=== PATIENT | female | born 1985 | race Caucasian/White ===

== ENCOUNTER → 2017-11-23 13:38 | Outpatient (CLI) | payer OTHER, SELFPAY ==
[2017-11-23 20:39] LABS: Group B Strep DNA By PCR Negative (Negative); Internal Control PASS; Specimen Processing Control PASS
[2017-11-23 20:40] LABS: Probe Check PASS
== END ==
PROVIDERS: Visit Provider Obstetrics & Gynecology
DX: Z36.85 Encounter for antenatal screening for Streptococcus B (principal)
CPT/HCPCS: 87081; 87653

== ENCOUNTER 2017-12-24 01:30 | Inpatient (IN) | payer OTHER, SELFPAY ==
[2017-12-23 23:31] VITALS: BMI 25.6
[2017-12-24 00:02] LABS: ROM Internal Control Test YES-OK TO RESULT pt. (Internal QC); ROM Patient Test Negative (Negative)
[2017-12-24] MEDS: Lactated Ringers 1,000 ML 50 ML IV ×4 (01:45→08:55)
[2017-12-24 02:11] LABS: Hematocrit 36.3 % (37-47); Hemoglobin 12.2 g/dl (12.0-15.0); Mean Corp Hgb Conc 33.6 g/gl (32-36); Mean Corpuscular Hgb 29.8 pg (27.0-32.0); Mean Corpuscular Volume 88.8 fL (81-99); Mean Platelet Vol. 9.2 fl (6.2-12.0); Platelet Count 317 K/mm3 (150-450); RBC Distribution Width CV 14.2 % (11.6-14.6); RBC Distribution Width SD 45.1 fl (35.1-43.9); Red Blood Count 4.09 M/mm3 (4.2-5.4); White Blood Count 16.9 K/mm3 (4.4-11.0)
[2017-12-24 02:12] LABS: Scan Indicated on CBC? Y/N NO
[2017-12-24] MEDS: Ondansetron 4 MG/2 ML Vial IV (02:47)
--- NOTE | 2017-12-24 07:47 | PCM.PN.BLA ---
Progress Note LABOR PROGRESS NOTE comfortable w/ epidural AVSS EFM 110-120 with avg variability. Accels Category I tracing. UCs q 3-4 mins for most part. CX: /-1 VTX Pelvis adequate IUPC placed. A/P; 40 5/7 SROM labor. Pitocin augment prn to adequate UCs. Continue labor Anticipate
[2017-12-24] MEDS: Oxytocin 30 units/NS 500 ml 30 UNITS/500 ML IV.SOLN IV (08:02)
[2017-12-24] MEDS: Oxytocin 30 units/NS 500 ml 30 UNITS/500 ML IV.SOLN 334 UNITS IV (10:23)
--- NOTE | 2017-12-24 10:27 | PCM.OB.VAG ---
Vaginal Delivery Maternal Presentation: Active Labor 40 4/7 wk ?SROM. UCs Amniotic Membrane Rupture Type: Spontaneous at home Amniotic Fluid Description: Clear Final NHUNG: 12/20/17 Gestational age: 40 Weeks and 4 Days Date of Procedure: 12/24/17 Pre-Operative Diagnosis: 40 4/7 wk labor. Post-Operative Diagnosis: same Surgery/ Procedure Performed: Spontaneous Vaginal Delivery Anesthesiologist: Cristal Beavers Type of Anesthesia: Epidural Description of Procedure: of a madrigal viable female over intact perineum. Head delivered MALINA. OP and nares bulb suctioned after delivery of shoulders. Baby to maternal abdomen with spont, vigorous cry. Delayed cord clamped and cut on maternal abdomen. PP exam: 2nd deg vaginal laceration noted near introitus. repaired under epidural to hemostatic, intact with 3-0 vicryl. No other lacerations. Placenta delivered by spont expulsion, expression and manual extraction. Uterus manually explored after delivery of placenta. 3V cord, normal appearing EBL 300 Pt and infant tolerated delivery well. To recovery [employer] counts correct x two. Presentation: Vertex, MALINA Placental Delivery Description: Spontaneous, Expressed Placenta Disposition: [facility] Cord Vessel Description: 3 Vessels Cord Entanglement: None Drain: Silva to straight drain Estimated Blood Loss: 300 Infant A gender: Female (1 minute): 8 (5 minute): 9 Episiotomy Description: None Laceration: Vaginal Extension/lac, 2nd degree Medications given after delivery: IV Pitocin Complications: None
--- NOTE | 2017-12-24 10:31 | PCM.DCVAG ---
Discharge Diet: No Restrictions May resume sexual activity in: 4-6 weeks Additional Activity Instructions:: Nothing in the vagina for 4-6 weeks. You may return to work/school in 6 weeks. Additional Instructions: If you experience any of the following, contact your healthcare provider. Bleeding that soaks a pad every hour for 2 hours Fever 100.4 or higher Unrelieved abdominal pain Problems urinating (including inability to urinate or burning while urinating). Visual changes Severe headache Flu-like symptoms Pain or redness in one of both of your breasts Pain, warmth, tenderness or swelling in your legs, especially the calf area Frequent nausea and vomiting Symptoms of depression or anxiety If you experience any of the following, call 911 or go to the nearest Emergency Room. Chest pain Problems breathing Seizure activity Partial or complete paralysis of a body part, slurred speech, weakness or drooping of the face, or a sudden inability to walk or hold your balance Allergies/Adverse Reactions: Allergies No Known Allergies Allergy (Verified 12/23/17 23:29) Medications to take at Discharge Vits [Prenatabs FA] 1 tablet PO DAILY 12/23/17 Please Follow Up With: Sharda Nelson MD - [phone] When: Call to make an appointment with your doctor in 6 weeks. Primary Care Physician: Ranjeet Malave [Primary Care Provider] - Proposed Discharge Date: 12/26/17
--- NOTE | 2017-12-24 10:32 | DCINST_ITS ---
Discharge Diet: No Restrictions May resume sexual activity in: 4-6 weeks Additional Activity Instructions:: Nothing in the vagina for 4-6 weeks. You may return to work/school in 6 weeks. Additional Instructions: If you experience any of the following, contact your healthcare provider. * Bleeding that soaks a pad every hour for 2 hours * Fever 100.4 or higher * Unrelieved abdominal pain * Problems urinating (including inability to urinate or burning while urinating) . * Visual changes * Severe headache * Flu-like symptoms * Pain or redness in one of both of your breasts * Pain, warmth, tenderness or swelling in your legs, especially the calf area * Frequent nausea and vomiting * Symptoms of depression or anxiety If you experience any of the following, call 911 or go to the nearest Emergency Room. * Chest pain * Problems breathing * Seizure activity * Partial or complete paralysis of a body part, slurred speech, weakness or drooping of the face, or a sudden inability to walk or hold your balance Allergies/Adverse Reactions: Allergies No Known Allergies Allergy (Verified 12/23/17 23:29) Medications to take at Discharge Vits [Prenatabs FA] 1 tablet PO DAILY 12/23/17 Please Follow Up With: Sharda Nelson MD - [phone] When: Call to make an appointment with your doctor in 6 weeks. Primary Care Physician: Ranjeet Malave [Primary Care Provider] - Proposed Discharge Date: 12/26/17
[2017-12-24] MEDS: Oxytocin 30 units/NS 500 ml 30 UNITS/500 ML IV.SOLN 167 UNITS IV (10:50)
[2017-12-24] MEDS: 0.9% Saline Lock 10 ML Syringe IV (11:56)
[2017-12-24 15:25] VITALS: BP 104/70; PULSE 84; RESP 16; TEMP 37.2; O2SAT 96
[2017-12-24 19:45] VITALS: BP 101/65; PULSE 80; RESP 16; TEMP 36.8; O2SAT 96
[2017-12-25] VITALS (7 sets, daily range): BP systolic 90–110; BP diastolic 48–78; PULSE 68–78; RESP 16–18; TEMP 36.3–36.8; O2SAT 95–98
--- NOTE | 2017-12-25 07:44 | PCM.PN.OB ---
Subjective: PPD#1 Doing well. Baby nursing and she would like assistance with this today. Slept some between baby's last feed and approx 7:15 am. Pain minimal. No concerns voiced. - Physical Exam General: Alert, Oriented x3, Cooperative, No apparent distress HEENT: Atraumatic Neck: Supple Abdomen: Soft - Fundus NT , inferior to umbilcus, Firm Neurological: Cranial nerves II-XII grossly intact Psych/Mental Status: Normal Affect Vital Signs Temp Pulse Resp BP Pulse Ox 98.2 F 75 16 106/62 96 12/25/17 07:00 12/25/17 07:00 12/25/17 07:00 12/25/17 07:00 12/25/17 07:00 Oxygen Delivery Method Room Air Weight: 78.8 kg Body Mass Index (BMI) 25.6 Intake and Output for Last 24 Hours 12/23/17 12/24/17 12/25/17 23:59 23:59 23:59 Intake Total 3898 / 3898 Output Total 3800 / 3800 Balance 98 / 98 Assessment/Plan PPD#1 Stable pp. Assist with nursing today. Continue care.
[2017-12-25] MEDS: Prenatal Vits Tablet 1 TABLET PO (13:31)
[2017-12-25] MEDS: Ibuprofen 600 MG Tablet PO (20:24)
[2017-12-26 01:31] VITALS: BP 109/60; PULSE 62; RESP 16; TEMP 36.6; O2SAT 98
--- NOTE | 2017-12-26 08:06 | PCM.PN.OB ---
Subjective: PPD#2 Doing well. Nursing a little better Baby sleepy this am. Pain control adequate. - Physical Exam General: Alert, Oriented x3, Cooperative, No apparent distress HEENT: Atraumatic Neck: Supple Abdomen: Soft - fundus firm NT inferior to umbilicus Neurological: Cranial nerves II-XII grossly intact Psych/Mental Status: Normal Affect Vital Signs Temp Pulse Resp BP Pulse Ox 97.8 F 62 16 109/60 98 12/26/17 01:31 12/26/17 01:31 12/26/17 01:31 12/26/17 01:31 12/26/17 01:31 Oxygen Delivery Method Room Air Weight: 78.8 kg Body Mass Index (BMI) 25.6 Intake and Output for Last 24 Hours 12/24/17 12/25/17 12/26/17 23:59 23:59 23:59 Intake Total 3898 / 3898 Output Total 3800 / 3800 Balance 98 / 98 Assessment/Plan PPD#2 Stable pp. D/C home today. RTO in 6 wk for pp check.
[2017-12-26 09:56] VITALS: BP 138/76; PULSE 78; RESP 16; TEMP 36.4; O2SAT 96
== END 2017-12-26 12:20 | disposition home or self-care (01) | DRG 775 ==
LOC: WPOUT 01:36
PROVIDERS: Admitting Provider Obstetrics & Gynecology; Family Provider Family Medicine; PCP Family Medicine; Visit Provider Obstetrics & Gynecology
DX: O42.02 Full-term premature rupture of membranes, onset of labor within 24 hours of rupture (principal); D64.9 Anemia, unspecified; O99.02 Anemia complicating childbirth; O70.1 Second degree perineal laceration during delivery; Z37.0 Single live birth; Z3A.40 40 weeks gestation of pregnancy
CPT/HCPCS: 59025; 59050; 84112; 85027; 86850; 86900; 99218; J7120; A4216; G0378; J2405

== ENCOUNTER 2017-12-31 12:55 | Outpatient (CLI) | payer OTHER, SELFPAY | END 2017-12-31 14:00 | disposition home or self-care (01) | LOC: WPOUT 13:04 → WP 13:06 | PROVIDERS: Family Provider Family Medicine; PCP Family Medicine; Visit Provider Obstetrics & Gynecology | DX: Z39.1 Encounter for care and examination of lactating mother (principal) | CPT/HCPCS: 96152 ==

== ENCOUNTER → 2019-08-19 14:10 | Outpatient (CLI) | payer OTHER, SELFPAY ==
[2019-08-19 20:27] LABS: Chlamydia Trachomatis by PCR Negative (Negative); Neisserai gonorrhoeae by PCR Negative (Negative); Probe Check PASS; Sample Adequacy Control PASS; Specimen Processing Control PASS
== END ==
PROVIDERS: Visit Provider Advanced Practice Midwife
DX: Z12.4 Encounter for screening for malignant neoplasm of cervix (principal); Z11.3 Encounter for screening for infections with a predominantly sexual mode of transmission; Z32.01 Encounter for pregnancy test, result positive
CPT/HCPCS: 87491; 87591

== ENCOUNTER → 2019-08-25 16:30 | Outpatient (CLI) | payer OTHER, SELFPAY ==
[2019-08-25 17:20] LABS: Color, Urine Yellow (Yellow); Glucose, Dipstick Normal (Normal); Hematocrit 39.1 % (37-47); Hemoglobin 12.6 g/dL (12.0-15.0); Ketone-Dipstick Negative (Negative); Leukocyte Esterase-Dipstick 25 /ul (Negative); Mean Corp Hgb Conc 32.2 g/dL (32-36); Mean Corpuscular Hgb 28.3 pg (27.0-32.0); Mean Corpuscular Volume 87.9 fL (81-99); Mean Platelet Vol. 8.5 fl (6.2-12.0); Nitrite-Dipstick Negative (Negative); Occult Blood-Urine Negative /ul (Negative); POSITIVE MORPHOLOGY YES; Platelet Count 354 K/mm3 (150-450); Protein-Dipstick Negative (Negative); RBC Distribution Width CV 12.8 % (11.6-14.6); RBC Distribution Width SD 41.3 fl (35.1-43.9); Red Blood Count 4.45 M/mm3 (4.2-5.4); Urine Bilirubin Dipstick Negative (Negative); Urine Clarity Sl. Cloudy (Clear); Urine Urobilinogen Normal (Normal); White Blood Count 10.8 K/mm3 (4.4-11.0)
[2019-08-25 17:52] LABS: Differential Indicated MANUAL DIFF
[2019-08-25 17:56] LABS: Lymphocyte 24 % (19-41); Monocyte 5 % (0-10); Neutrophil-Band 1 % (0-5); Neutrophil-Segmented 70 % (47-70); Total Cells Counted 100 (MANUAL DIFF)
[2019-08-25 17:57] LABS: Platelet Estimate ADEQUATE (ADEQ); Red Cell Morphology NORM C+C NORMAL (NORM C&C)
[2019-08-25 18:00] LABS: Absolute Lymphocyte Count 2.59 X10^3/uL (0.83-4.51); Absolute Neutrophil Count 7.7 X10^3/uL (2.0-7.7)
[2019-08-26 09:23] LABS: HIV - WCH Non-Reactive (Nonreactive); Hepatitis B Surface Antigen Non-Reactive (Nonreactive); Hepatitis C Antibody Non-Reactive (Nonreactive); Rubella IgG 157.8 IU/mL
[2019-08-26 11:08] LABS: Pathologist Review Reviewed
[2019-08-28 03:07] LABS: Prenatal RPR NONREACTIVE (NONREACTIVE)
== END ==
PROVIDERS: Visit Provider Obstetrics & Gynecology
DX: Z34.81 Encounter for supervision of other normal pregnancy, first trimester (principal)
CPT/HCPCS: 36415; 81002; 84443; 85025; 86703; 86762; 86803; 87340

== ENCOUNTER → 2020-01-16 08:43 | Outpatient (CLI) | payer OTHER, SELFPAY ==
[2020-01-16 10:40] LABS: Hematocrit 34.4 % (37-47); Hemoglobin 11.1 g/dL (12.0-15.0); Mean Corp Hgb Conc 32.3 g/dL (32-36); Mean Corpuscular Hgb 29.6 pg (27.0-32.0); Mean Corpuscular Volume 91.7 fL (81-99); Mean Platelet Vol. 9.1 fl (6.2-12.0); Platelet Count 318 K/mm3 (150-450); RBC Distribution Width CV 13.4 % (11.6-14.6); RBC Distribution Width SD 44.9 fl (35.1-43.9); Red Blood Count 3.75 M/mm3 (4.2-5.4); White Blood Count 10.8 K/mm3 (4.4-11.0)
[2020-01-16 10:47] LABS: Glucose Challenge Gest 1H 50g 123 mg/dL (70-140)
== END ==
PROVIDERS: Visit Provider Obstetrics & Gynecology
DX: Z34.83 Encounter for supervision of other normal pregnancy, third trimester (principal)
CPT/HCPCS: 36415; 82950; 85027

== ENCOUNTER → 2020-03-17 16:07 | Outpatient (CLI) | payer OTHER, SELFPAY | PROVIDERS: Visit Provider Obstetrics & Gynecology | DX: Z36.85 Encounter for antenatal screening for Streptococcus B (principal) | CPT/HCPCS: 87081 ==

== ENCOUNTER 2020-04-10 06:18 | Inpatient (IN) | payer OTHER, SELFPAY ==
[2020-04-10] VITALS (39 sets, daily range): BP systolic 106–140; BP diastolic 55–81; PULSE 32–115; RESP 18; TEMP 36–37.1; O2SAT 82–100; BMI 27.0
[2020-04-10 06:47] LABS: Absolute Lymphocyte Count 1.56 X10^3/uL (0.83-4.51); Absolute Neutrophil Count 10.6 X10^3/uL (2.0-7.7); Basophil# 0.04 X10^3/uL; Basophil% 0.3 % (0-1); Eosinophil# 0.04 X10^3/uL; Eosinophils% 0.3 % (0-5); Hematocrit 35.7 % (37-47); Hemoglobin 11.3 g/dL (12.0-15.0); Lymphocyte # 1.56 X10^3/ul (4.0); Lymphocyte % 11.8 % (19-41); Mean Corp Hgb Conc 31.7 g/dL (32-36); Mean Corpuscular Hgb 28.5 pg (27.0-32.0); Mean Corpuscular Volume 90.2 fL (81-99); Mean Platelet Vol. 9.8 fl (6.2-12.0); Monocyte# 0.91 X10^3/uL; Monocyte% 6.9 % (0-10); NRBC Flagged by Analyzer 0 % (0-5); Neutrophil # 10.62 X10^3/uL (2.7-7.7); Neutrophil % 79.9 % (47-70); Platelet Count 288 K/mm3 (150-450); RBC Distribution Width CV 14.2 % (11.6-14.6); RBC Distribution Width SD 46.3 fl (35.1-43.9); Red Blood Count 3.96 M/mm3 (4.2-5.4); White Blood Count 13.3 K/mm3 (4.4-11.0)
[2020-04-10] MEDS: Lactated Ringers 500 ML 999 ML IV (06:55)
[2020-04-10] MEDS: fentaNYL-bupivacaine (epidural) 100 ML BAG EPIDURAL (07:35)
[2020-04-10] MEDS: Lactated Ringers 1,000 ML 200 ML IV ×2 (07:57→12:13)
[2020-04-10 10:29] LABS: Probe Check PASS; Specimen Processing Control PASS
--- NOTE | 2020-04-10 10:41 | PCM.HP.BLA ---
History and Physical ACOG ANTEPARTUM RECORD - HISTORY AND PHYSICAL (04/10/2020) Name: DENISA NICKERSON History of This : This is a 34-year-old G2, P1 who presents to labor and delivery in active labor. care has otherwise been uneventful. OB Physician: STEPHANIE 's Physician: ABHINAV Nicholas..................................................................... : 1985 Age: 34 Address: [address] [place] [address] Phone: H) [phone] (O) [phone] Insurance Carrier: [employer] [id number] Emergency Contact: RAMOS NICKERSON [phone] ...................................................................... Final NHUNG: 04/06/20 By Ultrasound: PARITY: (G-Total Pregnancies P-Fullterm,Premature,Induced AB,Spont AB, Ectopics, Multiple,Living) NHUNG CONFIRMATION: By LMP: 06/30/19 Final NHUNG: 04/06/20 OB PROBLEM LIST: Declines AFP and CF tests. Margina previa - RESOLVED Pt has a first cousin with Autism s/p Tdap @ 36w ALLERGIES: NKA MEDICATIONS: ondansetron 8 mg disintegrating tablet 1 po q 8 hr prn + DHA 28 mg iron- 975 mcg-200 mg combo pack daily Prometrium 200 mg capsule 2 po nightly until 12 wk EGA SOCIAL HISTORY: Smoking - Never Alcohol Use - occasionally not while Diet - moderate, balanced diet, caffeine < 2 drinks per day and Tea 1-2 x daily. Water intake 750 cc jug fills 2-3 x day. Lifestyle - low stress lifestyle Exercise - active, Likes to walk and kayak. 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 Illicit Drug Use - denies use of street drugs Sexual Activity - Residence - lives with Place of - [place], [place] Hours Worked - 28 Spouse-Sig Other Name - Ramos Nickerson Spouse-Sig Other Occupation - [employer] Spouse-Sig Other Phone No - [phone] Children Name(s) - Teresa (TRACE) PRIOR DELIVERY HISTORY DEL DATE GEST LAB WT LB WT OZ TYPE ANES LABOR TX 26 Feb 18 41 12 7 7 Vag Epidural No ANTEPARTUM FLOW CHART VISIT RTC FU F F NV U U DATE WK MD WKS HT PN HR M SS BP ED WT NV GL D EF ST __ ____ ___ __ __ ___ __ __ __ ___ __ __ __ ___ __ 12 Mar 40 SHM 1 38 V + + 112/88 sl 184 - - 4 60 -2 03 Mar SHM 1 39 V + + 106/76 sl 182 tr - 3 50 -3 February CH 1 38 V + + 110/80 sl 179 tr - 20 February 37 SHM 1 37 V + + 110/72 0 179 tr - 2+ 50 -3 February SHM 1 + 118/60 o 174 Jan SHM 2 31 ? + + 120/80 0 174 tr - 16 Jan SHM 2 ? 144 + - 110/70 o 163 02 Feb 25 SHM 2 + + 112/60 o 0 20 Jan 23 SHM 2 28 + + 120/70 0 163 tr - 09 Jan 21 JMW 2 26 + + 104/70 0 163 tr ne Dec 22 JMW 4 24 + + 102/72 0 160 - - Nov 17 SHM 2 20 + + 96/68 0 153 tr - Oct 13 ELB 4 - - + ? 100/72 0 154 tr - Sep 09 ELB 4 - - + O 103/71 0 151 - - Aug 04 ELB on 90/66 0 153 - - Aug 04 ELB on 90/ 0 153 - - ANTEPARTUM NOTE(S): Apr 09 2020: feeling well. Cervix check. Mar 31 2020: see note Mar 24 2020: cxs ely nd off. discomfort around pelvic area. Mar 17 2020: GBS today, LARC declined March 11 2020: Feb 24 2020: see note Feb 11 2020: Jan 29 2020: Inquires about US Jan 16 2020: doing well Jan 04 2020: u/s done today. doing well Dec 19 2020: feeling well. glucola given. Nov 20 2020: see note Oct 23 2019: doing well, declines MSAFP Sep 24 2019: Aug 25 2019: Aug 25 2019: COMPREHENSIVE ANTEPARTUM NOTE(S): Apr 09 2020: Induction scheduled for 04/13 @ 7 am. Consents are signed and faxed to . She is instructed if ANY decrease in FM she is to go directly to [facility] and will need to be monitored until delivery. LMT Apr 09 2020: Membranes stripped Mar 31 2020: Denisa is here for a PNV. Good FM. Sl edema in feet when hot. No complaints or concerns expressed. Opted for cervix check. MK Mar 24 2020: +FM. FHR 155. Would like checked next week, but okay with no check this week. Discussed new option to get outpatient covid-19 testing prior to delivery to rule out and if neg woudl not have to wear mask. Let her know next week she may ask for an order to get this done through the drive thru testing or if coming in in labor can get once here, but we prefer outpatient after 39 weeks. Went a week overdue with her first, but SROM at home then labor started while at the hospital. Advised on when to call and if unsure to call triage anyways. Lives 15 minutes away and discussed being GBS negative she may labor at home longer until she is active if she wishes. States understanding and signs of labor. To return in 1 week for routine PNV with SHM and may want membrane sweeping at that time. - CH Mar 23 2020: H taken to OB. tkg Mar 17 2020: US CEPHALIC, JES grossly normal. Reports discharge. No pool, Wet prep - neg clue/trich/yeast, pH <4.5 => Leukorrhea. Mar 17 2020: Reviewed FM, SROM, and labor. LMT Mar 11 2020: TELEPHONE VISIT DUE TO PANDEMIC. Has increased contractions, but they are irregular and off and on the last few days. Denies mucus plug or bleeding. Has yellow colored discharge. Denies vagina itching, burning, odor however. HR 154 bpm. Forgot to take weight at work this week. FM precautions reviewed. will take 2 weeks paternity leave. Last day of work in house this week. 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 Follow up in office next week for GBS screening, discussion of induction indications. Call 9 minutes. Feb 25 2020: Notes more irregular ctx's but nothing progressive or timeable. Reviewed signs and sx of PTL. FM discussed, GBS at next visit. Low lying placenta and no bleeding reported. LMT Feb 25 2020: S<D, EFW 2661g (5lb 14oz in 79th%), JES 12.6cm. Prior marginal previa RESOLVED, placenta 2.4cm from os. Ok for . 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 I advised her to quarantine at home starting 37wga to avoid COVID19 related illness for her or at the time of delivery. Jan 29 2020: TELEHEALTH visit due to pandemia: FHR 143 bpm. Mild constipation, discomforts of pregancy, but notes theses are manageable. Continues working, canceled classess and is doing one on one education only. Encouraged social distancing and to wear mask for all workplace interactions given COVID-19. Good movement. Occasional Eugene Huerta. Jan 16 2020: US EFW 71st%, placenta 17mm from cervix. Plan phone follow up next visit given COVID-19 precautions. Pt reports irregular heart beat when checking at home, denies tachycardia. Occasional Eugene Huerta. She continues working. No concerns for high risk exposures. Discussed PPBC. Used condoms in past and hx subfertility - too 1.5 years to conceived this time and longer for G1. Nov 20 2019: Denisa is here for a appt. She is feeling well with no edema. Nausea has subsided. Reported that on 11/18/2019 she had vision problems in her right eye. Said that it was like looking through water for 45 mins. Said there was no headache with it and hasn't had it since. Urine tr -. Baby moving, waiting till for gender. MK Nov 20 2019: Reviewed PMH. US EFW 68th%, SEX UNKNOWN. Posterior previa present. Repeat US at 28wga. Eugene Huerta precautions. Si/sx stroke reviewed. Pt to be seen if sx recur. Sep 24 2019: Reviewed NOB labs. Doing well Minimal nausea, constipation is better. She is here with her daughter who is anxious re doctor. FHT noted. RTO in 4 wk for PNV. EB Aug 26 2019: Rubella immune Hgb 12.6 g/dl. EB Aug 26 2019: Addition to yesterday's NOB visit note: Denisa and her have had flu shots this fall. DRE. Aug 25 2019: Denisa is here for NOB nurse visit w NHUNG April 06, 2020 planning a vag del at [facility], uncertain if epidural, using Dr Us for post disch ped care and to breastfeed. Denisa is a G 2 P 1 with 20 month old daughter at home. 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 Her , Ramos works for [employer]. The was unplanned (they'd quit trying for awhile) and they are happy. Denisa has NKA to drugs, food. latex or the environment. She is a lifetime non smoker, drinks alcohol occ but not in pg and denies street drug use past or present. Her diet is well balanced with 1 or 2 cups of tea daily and a 750 cc water jug she refills 2 or 3 x. She is active w her home and job and likes to walk and kayak. Genetics Screening form completed noting a cousin w autism. Besides a vitamin she takes Prometrium 400 mg daily for the first 12 w. She declines AFP and CF tests. Warning signs in pg reviewed as well as otc meds ok to take, lifting restrictions of 25#, the importance of protein in her diet, wearing seatbelt low on her abdomen and how to reach the office after hours. She voices understanding. She has a copy of What to Expect. They have a cat but she does not change the litter. Routine labs ordered and US done today. Denisa has had chickenpox and two UTIs prior to her last pg. Enc to call w any concerns. Visit took approx 40 min. Devaughn CAMP. NEW Aug 25 2019: A positive. TSH wnl. Hgb 12.6 g/dl. EB Aug 20 2019: GC and chlamydia cultures NEG. EB Aug 19 2019: Denisa is a 34 yr old Gr2, P1 here for Missed Menses. She is w/an 18 yr old daughter. Hx monthly periods. By LMP 06/30/19, she would be 7 wks 1 day, NHUNG 04/06/20. No nausea, some breast tenderness, abdominal bloating. Offered daily probiotic to help w/bloating. She had called to the office 08/14 with concern of cramping R side; today reports this @ daily pain R side. US fo follow. No menstrual like cramping, no spotting. Taking daily PNV, Prometrium 400 mg @ hs thru 12 wks. Hx prior. No medical problems. No abd surgeries. Non-smoker. She would like to have a pap today along w/GC/Chlamydia cultures. 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 informational materials provided and reviewed otc meds ok to take. NO NSAIDS> kbm Aug 19 2019: Denisa is a 34yo here for a missed menses appointment. She originally scheduled an appointment with Dr. Nelson on 08/25/2019, but called for an appointment today because of consistent pain on her lower R side x several days. She reports mild fatigue and breast tenderness, and minimal nausea. she reports her her LMP as 06/30/2019 which gives her an NHUNG of 04/05/2020, making her 7w1d gestation today. An ultrasound today confirms these dates; a R sided benign appearing ovarian cyst was noted. A pap with cultures and pelvic exam was done today. Reviewed literature, OTC medications for minor discomforts, warning signs, practice paterns and schedule of visits. Pt. desires care by Dr. Nelson for this . RTO on scheduled visit of 08/25 for NOB, bloodwork and PNV with EB - KVW REVIEW OF SYSTEMS: GENERAL - Denies fever, or chills SKIN - Denies rash, new skin lesions, or change in moles EYES - Denies blurred vision, or change in visual acuity EARS - Denies ear pain, or difficulty hearing NOSE - Denies nasal congestion, discharge, or bleeding MOUTH - Denies sore throat, or difficulty swallowing NECK - Denies pain or swelling RESPIRATORY - Denies shortness of breath, cough, wheezing CARDIOVASCULAR - Denies palpitations, chest pain, orthopnea, PND, peripheral edema, syncope or claudication GASTROINTESTINAL - Denies nausea, vomiting, diarrhea, constipation, Denies abdominal pain, melena and or bright red blood GENITOURINARY - Denies dysuria, frequency of urination, urgency, or hesitancy MUSCULOSKELETAL - Denies joint or muscle pain, or back pain NEUROLOGICAL - Denies localized numbness, weakness, or tingling PSYCHIATRIC - Denies depression, anxiety, substance abuse or suicide attempts ENDOCRINE - Denies heat or cold intolerance, weight loss or gain, increasing thirst HEMATO-IMMUNOLOGIC - Denies easy bruising, bleeding, oral ulcerations or recurrent infections GENETICS SCREENING: Age 35+ years: No Thalassemia: No Neural Tube Defect: No Down Syndrome: No MOLLY-SACHS: No Sickle Cell Disease: No Hemophilia: No Musc. Dystrophy: No Cystic Fibrosis: No-declines screening Ebenezer Chorea: No Mental Retardation: No Fragile X: No Other genetic: No Other defects: No SABs/still births: No Drugs since LMP: Yes Comments: Cousin with Autism INFECTION HISTORY: High risk AIDS: No High risk Hepatitis: No Exposed to TB: No Exposed to Herpes: No Rash/viral illness since LMP: No History of STD: No MENSTRUAL HISTORY: *Menses Amount/Duration: 7 daysMenses Regularity: RegularMenarche (Age Onset): 17* PAST SUMMARY: PARITY: 1. Total Pregnancies............ 2 2. Full Term Pregnancies........ 1 3. Premature.................... 0 4. Abortions - Induced.......... 0 5. Abortions - Spontaneous...... 0 6. Ectopics..................... 0 7. Multiple Births.............. 0 8. Living Children.............. 1 PAST #1: Date of :.................. 12/24/17 Gestation Weeks:................ 41 Length of labor(hours):......... 12 Sex:............................ F Weight-lbs:............... 7 Weight-oz:................ 7 Type of Delivery:............... Vag Type of Anesthesia:............. Epidural Place of Delivery:.............. [place] Treatment of Labor?:.... No Comment: PHYSICAL EXAMINATION General Appearence: 34 yo female in no acute distress Vital Signs: AF, VSS Heart: RRR without rubs or gallops Lungs: CTA x 2 Breasts: deferred Abdomen: gravid Pelvis: Cervix: 6/90%/intact Presentation: cephalic Station: -2 Fetus: Size: AGA Movement: present Heart: present Labs for : DENISA NICKERSON since 07/11/2019 ORDER DATEIN DESCRIPTION VALUE UNITS RANGE A+ COMMENT CORONAVIRUS 19, DM SCREEN 04/10/20 NOTE Original Ordering Provider: Chirag Encinas COVID-19,DM Negative Not Detect TYPE AND SCREEN 04/10/20 Reason for Type AND Screen/Red Cells: Labor [facility]~[address] [place], [address]~ BLOOD TYPE GEL A POSITIVE N ANTIBODY SCREEN NEGATIVE N CBC W/DIFF, AUTOMATED 04/10/20 NOTE Original Ordering Provider: Chirag Encinas WBC 13.3 K/mm3 4.4-11.0 H RBC 3.96 M/mm3 4.2-5.4 L HGB 11.3 g/dL 12.0-15.0 L HCT 35.7 % 37-47 L MCV 90.2 fL 81-99 MCH 28.5 pg 27.0-32.0 MCHC 31.7 g/dL 32-36 L RDW CV 14.2 % 11.6-14.6 RDW SD 46.3 fl 35.1-43.9 H PLT 288 K/mm3 150-450 MPV 9.8 fl 6.2-12.0 NEUT% 79.9 % 47-70 H LY% 11.8 % 19-41 L MONO% 6.9 % 0-10 EO% 0.3 % 0-5 BASO% 0.3 % 0-1 IM GRAN % 0.800 % 0.0-0.9 IG% - Immature Granulocytes (promyelocytes, myelocytes and metamyelocytes) > 1% indicates that a LEFT SHIFT is Present. ABSOLUTE NEUT 10.6 X10 3/uL 2.0-7.7 H ABSOLUTE LYMPH 1.56 X10 3/uL 0.83-4.51 NRBC, FLAGGED 0 % 0-5 CULTURE, GROUP B STREPTOCOCCUS 03/17/20 NOTE Original Ordering Provider: Wendi Montiel SALIMA Culture Group B Beta Streptococcus is not isolated. Reviewed by WENDI GLUCOSE CHALLENGE GEST 1H 50G 01/16/20 NOTE Original Ordering Provider: Wendi Treviño GLU GEST 50G 1H 123 mg/dL 70-140 Reviewed by WENDI CBC-COMPLETE BLOOD CNT NO DIFF 01/16/20 NOTE Original Ordering Provider: Wendi Treviño WBC 10.8 K/mm3 4.4-11.0 RBC 3.75 M/mm3 4.2-5.4 L HGB 11.1 g/dL 12.0-15.0 L HCT 34.4 % 37-47 L MCV 91.7 fL 81-99 MCH 29.6 pg 27.0-32.0 MCHC 32.3 g/dL 32-36 RDW CV 13.4 % 11.6-14.6 RDW SD 44.9 fl 35.1-43.9 H PLT 318 K/mm3 150-450 MPV 9.1 fl 6.2-12.0 Reviewed by WENDI RPR 08/25/19 NOTE Original Ordering Provider: Sharda Nelson RPR NONREACTIVE NONREACTIVE Reviewed by SHARDA CBC W/DIFF, AUTOMATED 08/25/19 NOTE Original Ordering Provider: Sharda Nelson WBC 10.8 K/mm3 4.4-11.0 RBC 4.45 M/mm3 4.2-5.4 HGB 12.6 g/dL 12.0-15.0 HCT 39.1 % 37-47 MCV 87.9 fL 81-99 MCH 28.3 pg 27.0-32.0 MCHC 32.2 g/dL 32-36 RDW CV 12.8 % 11.6-14.6 RDW SD 41.3 fl 35.1-43.9 PLT 354 K/mm3 150-450 MPV 8.5 fl 6.2-12.0 ABSOLUTE NEUT 7.7 X10 3/uL 2.0-7.7 ABSOLUTE LYMPH 2.59 X10 3/uL 0.83-4.51 CELLS COUNTED 100 MANUAL DIFF SEGS 70 % 47-70 BAND 1 % 0-5 LYMPH 24 % 19-41 MONOCYTE 5 % 0-10 PLT EST ADEQUATE ADEQ RED CELL MORPH NORM C+C NORMAL NORM C AND C PATH REV Reviewed AMENDED REPORT 08/26/19 1108 PATH REV previously reported as: February Reviewed by SHARDA HEPATITIS C ANTIBODY 08/25/19 NOTE Original Ordering Provider: Sharda Nelson HEPATITIS C AB Non-Reactive Nonreactive Non Reactive: < 0.8 Equivocal: >/= 0.8 to < 1.0 Reactive: >/= 1.0 The CDC recommends that a reactive/equivocal HCV antibody result be followed up by the HCV Nucleic Acid Amplification test ([id number]) Reviewed by SHARDA HEPATITIS B SURFACE ANTIGEN 08/25/19 NOTE Original Ordering Provider: Sharda Nelson HEPB SURFACE AG Non-Reactive Nonreactive Reviewed by SHARDA HIV - H 08/25/19 NOTE Original Ordering Provider: Sharda Nelson HIV - [facility] Non-Reactive Nonreactive Reviewed by SHARDA RUBELLA IGG 08/25/19 NOTE Original Ordering Provider: Sharda Nelson RUBELLA IGG 157.8 IU/mL Antibody results Interpretation of Immune Status < 5 IU/ml Presumed Non-immune 5 - < 10 IU/ml Equivocal > or = 10 IU/ml Presumed Immune Reviewed by SHARDA T AND S-NO CHARGE W/PNP 08/25/19 Reason for Type AND Screen/Red Cells: Surgery? N [facility]~[address] [place], [address]~ BLOOD TYPE GEL A POSITIVE N AB SCREEN GEL NEGATIVE N Reviewed by SHARDA THYROID STIM HORMONE (TSH) 08/25/19 NOTE Original Ordering Provider: Sharda Nelson TSH 0.90 uIU/mL 0.358-3.74 Reviewed by SHARDA Reviewed by SHARDA URINALYSIS, ROUTINE (DIPSTICK) 08/25/19 NOTE Original Ordering Provider: Sharda Nelson COLOR Yellow Yellow CLARITY Sl. Cloudy Clear GLUCOSE, UR Normal mg/dl Normal BILIRUBIN URINE Negative mg/dL Negative KETONE UR Negative mg/dl Negative SP.GR. DIPSTX 1.010 1.002-1.030 PH UR 7.0 5.0 - 8.0 PROT DIPSTX Negative mg/dl Negative UROBILI Normal mg/dl Normal NITRITE UR Negative Negative OCCULT BLOOD-UR Negative /ul Negative LEUK ESTERASE 25 /ul Negative H Reviewed by SHARDA BAYANEOUS LAB PROCEDURE 08/19/19 NOTE Original Ordering Provider: LUCY Jones [facility] [facility] [place] IGP,Aptima HPV, Age Gdln Interpretation: NEGATIVE FOR INTRAEPITHELIAL LESION AND MALIGNANCY. Specimen Adequacy: Satisfactory for evaluation. No endocervical component is identified. An endocervical component is not commonly seen in the patient. Comments: The pap smear is a screening test designated to aid in the detection of pre-malignant and malignant conditions of the uterine cervix. It is not a diagnostic procedure and should not be used as the sole means of detecting cervical cancer. Both false-positive and false-negative reports do occur. This liquid based ThinPrep(r) pap test was screened with the use of an image guided system. Performed by Monique Biswas Analog Ic Design Engineer(ASCP) This test detects fourteen high-risk HPV types (16/18/31/33/35/39/45/51/52/56/58/59/60/68) without differentiation. Age Gdln ACOG Testing 30-65 HPV Results: HPV Aptima: Negative TESTING PERFORMED AT [facility]. ORIGINAL REPORT ON FILE IN LAB CONTAINS ADDITIONAL TEST SITE INFORMATION. Reviewed by SHARDA DONALD [facility] BY PCR 08/19/19 NOTE Original Ordering Provider: LUCY Jones [facility] PCR Negative Negative NG BY PCR Negative Negative Reviewed by SHARDA Impression /Plan: 40+ week intrauterine in active labor. Preparations in progress for delivery. Procedure Criteria Procedure Type: Essential Procedure Essential: Yes Criteria Statement: On 01/13/2020 the [facility] ([facility]) Public Order signed by [facility] Director Kellen Cabrera M.D., regarding the Management of Non-Essential Surgeries and Procedures for the purpose of preserving Personal Protective Equipment (PPE) and critical hospital capacity and resources within [place] went into effect as of 01/14/2020 at 5:00PM. According to the [facility] Public Order: This action will remain in full force and effect until the State of Emergency declared by the Governor no longer exists or the Director of the [facility] rescinds or modifies this Order. This [facility] order stated all non-essential or elective surgeries and procedures that utilize PPE should be delayed unless there is undue risk to the current or future health of a patient. After reviewing the aforementioned [facility] Public Order and the patient's clinical case, I have determined that the scheduled procedure meets the criteria to go forward. Risk to Patient if Procedure Delayed: Risk of rapidly worsening to severe symptoms if delayed
[2020-04-10] MEDS: Oxytocin 30 units/NS 500 ml 30 UNITS/500 ML IV.SOLN 334 UNITS IV (13:12)
[2020-04-10] MEDS: Methylergonovine 0.2 MG/ML Ampul IM (13:14)
--- NOTE | 2020-04-10 13:24 | OP.PCM_ITS ---
Vaginal Delivery Maternal Presentation: Active Labor Amniotic Membrane Rupture Type: Artificial Amniotic Fluid Description: Clear Final NHUNG: 04/06/20 Final NHUNG Source: US <20 weeks Gestational age: 40 Weeks and 4 Days Date of Procedure: 04/10/20 Pre-Operative Diagnosis: IUP Post-Operative Diagnosis: IUP Surgery/ Procedure Performed: Spontaneous Vaginal Delivery Type of Anesthesia: Epidural Description of Procedure: Spontaneous vaginal delivery of a viable female infant with Apgars of 9/9 from an occiput anterior presentation with clear amniotic fluid and normal three- vessel placenta. No episiotomy. Second-degree midline laceration repaired with 3-0 repeat suture under epidural. Sponges okay. Delivery physician: Chirag Encinas MD. Presentation: Vertex Placental Delivery Description: Spontaneous Placenta Disposition: [facility] Cord Vessel Description: 3 Vessels Cord Entanglement: None Estimated Blood Loss: 450 cc Infant A gender: Female (1 minute): 9 (5 minute): 9 Episiotomy Description: None Laceration: Midline, 2nd degree Medications given after delivery: IV Pitocin, IM Methergin Complications: None
--- NOTE | 2020-04-10 13:26 | DCINST_ITS ---
Discharge Diet: No Restrictions Discharge Activity: May Shower, May Take a Tub Bath May resume sexual activity in: 4-6 weeks Additional Activity Instructions:: Nothing in the vagina for 4-6 weeks. You may return to work/school in 6 weeks. Call your doctor if you observe: Inability to urinate, Inability to have a bowel movement, Using more than one pad per hour Additional Instructions: If you experience any of the following, contact your healthcare provider. * Bleeding that soaks a pad every hour for 2 hours * Fever 100.4 or higher * Unrelieved incision or abdominal pain * Swelling, redness, discharge or bleeding from your incision or episiotomy site * Your incision begins to separate * Problems urinating (including inability to urinate or burning while urinating). * Visual changes * Severe headache * Flu-like symptoms * Pain or redness in one of both of your breasts * Pain, warmth, tenderness or swelling in your legs, especially the calf area * Frequent nausea and vomiting * Symptoms of depression or anxiety If you experience any of the following, call 911 or go to the nearest Emergency Room. * Chest pain * Problems breathing * Seizure activity * Partial or complete paralysis of a body part, slurred speech, weakness or drooping of the face, or a sudden inability to walk or hold your balance Allergies/Adverse Reactions: Allergies No Known Allergies Allergy (Verified 04/10/20 07:53) Medications to take at Discharge Vits [Prenatabs FA] 1 tablet PO DAILY 12/23/17 Please Follow Up With: Wendi Treviño MD - [phone] When: Call to make an appointment with your doctor in 6 weeks. Test Results: Test results from this visit will be discussed in further detail at your follow- up appointment, if applicable.
--- NOTE | 2020-04-10 13:26 | PCM.DCVAG ---
Discharge Diet: No Restrictions Discharge Activity: May Shower, May Take a Tub Bath May resume sexual activity in: 4-6 weeks Additional Activity Instructions:: Nothing in the vagina for 4-6 weeks. You may return to work/school in 6 weeks. Call your doctor if you observe: Inability to urinate, Inability to have a bowel movement, Using more than one pad per hour Additional Instructions: If you experience any of the following, contact your healthcare provider. Bleeding that soaks a pad every hour for 2 hours Fever 100.4 or higher Unrelieved incision or abdominal pain Swelling, redness, discharge or bleeding from your incision or episiotomy site Your incision begins to separate Problems urinating (including inability to urinate or burning while urinating). Visual changes Severe headache Flu-like symptoms Pain or redness in one of both of your breasts Pain, warmth, tenderness or swelling in your legs, especially the calf area Frequent nausea and vomiting Symptoms of depression or anxiety If you experience any of the following, call 911 or go to the nearest Emergency Room. Chest pain Problems breathing Seizure activity Partial or complete paralysis of a body part, slurred speech, weakness or drooping of the face, or a sudden inability to walk or hold your balance Allergies/Adverse Reactions: Allergies No Known Allergies Allergy (Verified 04/10/20 07:53) Medications to take at Discharge Vits [Prenatabs FA] 1 tablet PO DAILY 12/23/17 Please Follow Up With: Wendi Treviño MD - [phone] When: Call to make an appointment with your doctor in 6 weeks. Test Results: Test results from this visit will be discussed in further detail at your follow-up appointment, if applicable.
[2020-04-10] MEDS: 0.9% Saline Lock 10 ML Syringe IV (15:49)
[2020-04-11 00:40] VITALS: BP 117/61; PULSE 78; RESP 18; TEMP 36.7
[2020-04-11] MEDS: Ibuprofen 600 MG Tablet PO ×3 (00:44→14:43)
[2020-04-11 03:54] VITALS: BP 111/64; PULSE 71; RESP 18; TEMP 36.8
[2020-04-11 07:38] VITALS: BP 99/40; PULSE 64; RESP 16; TEMP 36.3; O2SAT 99
[2020-04-11] MEDS: Senna/Docusate Sodium 1 Tablet PO (07:43)
--- NOTE | 2020-04-11 08:14 | PCM.PN.OB ---
Subjective: Patient without complaints. Breast-feeding going well. Minimal vaginal bleeding. Wants to go home. - Physical Exam Vitals/I&O's: Vital Signs Temp Pulse Resp BP Pulse Ox 97.3 F L 64 16 99/40 L 99 04/11/20 07:38 04/11/20 07:38 04/11/20 07:38 04/11/20 07:38 04/11/20 07:38 Oxygen Delivery Method Room Air Weight: 183 lb 3.266 oz Body Mass Index (BMI) 27.0 Intake and Output for Last 24 Hours 04/09/20 04/10/20 04/11/20 23:59 23:59 23:59 Intake Total 2310.00 / 2310.00 Output Total 1650 / 1650 Balance 660.00 / 660.00 Laboratory Results 04/10/20 06:25: Blood Type A POSITIVE, Antibody Screen NEGATIVE 04/10/20 07:30: COVID-19 (DM) Negative Current Medications Acetaminophen (Tylenol) 1,000 mg PO Q8H PRN PRN PRN Reason: Pain Score 1-3/10 Bisacodyl (Dulcolax) 10 mg RECTAL UD PRN PRN Reason: If no BM Dibucaine (Dibucaine) 1 applic TOPICAL TID PRN PRN; Protocol PRN Reason: Discomfort Hydrocortisone (Hytone) 1 applic TOPICAL TID PRN PRN; Protocol PRN Reason: Discomfort Ibuprofen (Motrin) 600 mg PO Q6H PRN PRN PRN Reason: Pain Score 1-3/10 Last Admin: 04/11/20 07:43 Dose: 600 mg Documented by: Measles/Mumps/Rubella Vaccine Live (M-M-R Ii) 0.5 ml SC .ONCE ONE Stop: 04/11/20 10:01 Last Admin: 04/10/20 14:13 Dose: Not Given Documented by: Methylergonovine Maleate (Methergine) 0.2 mg IM X1 PRN PRN Reason: Excess bleeding/uterine atony Last Admin: 04/10/20 13:14 Dose: 0.2 mg Documented by: Ondansetron HCl (Zofran) 4 mg IV Q4H PRN PRN PRN Reason: Nausea Oxycodone HCl (Oxyir) 5 - 10 mg PO Q4H PRN PRN PRN Reason: Pain Score 4-10/10 Senna/Docusate Sodium (Senokot-S, Ivis-Colace) 1 - 2 tablet PO DAILY PRN PRN PRN Reason: Constipation Last Admin: 04/11/20 07:43 Dose: 1 tablet Documented by: Simethicone (Mylicon) 80 mg PO PCHS PRN PRN Reason: Indigestion/Stomach pain Sodium Chloride () 5 - 15 ml IV UD PRN PRN Reason: SALINE FLUSH Last Admin: 04/10/20 15:49 Dose: 10 ml Documented by: Zolpidem Tartrate (Ambien (Generic)) 5 mg PO QHS PRN PRN PRN Reason: Insomnia Medical Necessity - Tobacco Use Smoking Status: Former smoker Assessment/Plan Doing well day #1 status post routine spontaneous vaginal delivery. Will discharge to home with routine instructions.
[2020-04-11 11:59] VITALS: BP 107/53; PULSE 78; TEMP 36.6
== END 2020-04-11 15:45 | disposition home or self-care (01) | DRG 807 ==
LOC: WP 13:44 → WPOUT 04-12 09:15
PROVIDERS: Admitting Provider Obstetrics & Gynecology; Referring Provider Obstetrics & Gynecology; Visit Provider Obstetrics & Gynecology
DX: O48.0 Post-term pregnancy (principal); Z37.0 Single live birth; Z3A.40 40 weeks gestation of pregnancy; O70.1 Second degree perineal laceration during delivery
CPT/HCPCS: 59025; 59050; 85025; 86850; 86900; 86901; 87635; 99218; G2023; J7120; A4216; G0378; U0003

== ENCOUNTER 2020-04-24 01:08 | Emergency (ER) | payer OTHER, SELFPAY ==
[2020-04-10 05:58] VITALS: BMI 27.0
[2020-04-24 01:10] VITALS: BP 124/95; PULSE 80; RESP 16; TEMP 37.1; O2SAT 100; BMI 25.5
--- NOTE | 2020-04-24 02:04 | ED.VISSUMM ---
- ER Visit Summary Date of Service: 04/24/20 Chief Complaint: Vaginal bleeding History of Present Illness: The patient is a 34 F who presents with vaginal bleeding. She states that it started this evening. She had a sudden bleeding episode at home. She is status post vaginal delivery 2 weeks ago. She received IM Methergine after her delivery and had a second-degree midline tear that was repaired. No episiotomy was performed. She states that she has had minimal bleeding since she has been home but tonight it was worse. She denies any pelvic pain. She is on no blood thinning medications. Physical Examination: Vital signs reviewed. HEENT exam unremarkable. Heart is regular rate and rhythm without murmurs. Lungs are clear to auscultation. Abdomen is soft and nontender. exam reveals some old blood in the vaginal vault. There is minimal active bleeding. No tenderness whatsoever on exam. Extremities reveal no edema. Skin exam normal. Neurologic exam normal. Test Results: None performed Emergency Department Course and Treatment: I elected not to retrieve any laboratory studies because the patient has no symptoms of dizziness, lightheadedness. She is on no blood thinning medications. I discussed this with Dr. Treviño, who is this patient's digital performance analyst. She recommends the patient be discharged home and monitor bleeding over the weekend. The patient is to call the office on Sunday and she will schedule an outpatient ultrasound for this patient. If the patient has any more heavy bleeding she will return to the emergency department. Treatment Plan: [] Disposition: Discharge Impression: Vaginal bleeding, status post vaginal delivery 2 weeks ago This note was generated with [employer]UX[employer] dictation software. It may contain incorrect words, spelling, and punctuation that were not noted in review of the chart prior to signing ED Disposition - Plan for ED Patient: Disposition: Home or Assisted Living Instructions: ED Bleed Irregular Vaginal Referrals: Ranjeet Malave MD [Primary Care Provider] - Wendi Norwood MD [STAFF PHYSICIAN] -
== END 2020-04-24 02:12 | disposition home or self-care (01) ==
PROVIDERS: Emergency Provider Emergency Medicine; PCP Family Medicine
DX: N93.9 Abnormal uterine and vaginal bleeding, unspecified (principal)
CPT/HCPCS: 99282

== ENCOUNTER 2020-04-24 04:50 | Day surgery (SDC) | payer OTHER, SELFPAY ==
[2020-04-24] VITALS (12 sets, daily range): BP systolic 91–130; BP diastolic 52–86; PULSE 68–90; RESP 14–16; TEMP 36.6–37.2; O2SAT 98–100; BMI 25.5; BMI 24.0
--- NOTE | 2020-04-24 04:56 | US_ITS ---
STUDY: ULTRASOUND OF THE FEMALE PELVIS - COMPLETE REASON FOR EXAM: Female, 34 years old. VAGINAL BLEEDING LMP: TECHNIQUE: Transvaginal TECHNICAL QUALITY: Adequate. COMPARISON: None. FINDINGS: The uterus is anteverted and is in a midline position. The uterus measures 12 x 8.8 x 7.5 cm. Normal uterine cervix. The endometrium measures 26 mm in thickness, and is heterogeneous. There is no demonstrated endometrial mass. There is no demonstrated myometrial mass. The right ovary is visualized. The right ovary measures 2 x 1.2 x 1 cm. There is no right ovarian cyst or ovarian mass. There is no visualized right adnexal mass or complex lesion. There is normal arterial and normal venous vascularity. The left ovary is visualized. The left ovary measures 2.6 x 2.5 x 1.5 cm. There is no left ovarian cyst or ovarian mass. There is no visualized left adnexal mass or complex lesion. There is normal arterial and normal venous vascularity. There is no fluid in the cul-de-sac. US/Transvaginal Non- IMPRESSION: Thickened heterogeneous endometrium, measuring 26 mm, suggesting retained gestational products. Electronically Signed: Elo Becker, at 7:26 EDT Tel , Service support ,
--- NOTE | 2020-04-24 04:57 | ED.DCSUM_ITS ---
- ER Visit Summary Date of Service: 04/24/20 Chief Complaint: Vaginal bleeding History of Present Illness: The patient is a 34 F patient returns because she is still having vaginal bleeding. I saw her earlier this morning for vaginal bleeding. Pelvic exam showed minimal active bleeding with clots. I spoke with her CARDIAC CATH TECHNOLOGIST who recommended discharge and follow-up on Sunday in the office. Patient went home and bled through 1 pad and a half an hour and was concerned about the clots that she was passing so she returns here she now tells me she is having some mild lower abdominal cramping. She still denies any dizziness or presyncopal symptoms. Physical Examination: Vital signs reviewed. HEENT exam unremarkable. Heart is regular rate and rhythm without murmurs. Lungs are clear to auscultation. Abdomen is soft and nontender. exam is deferred. Extremities reveal no samuel ma. Skin exam normal. Neurologic exam normal. Test Results: Hemoglobin is 11.4. Ultrasound is pending. Emergency Department Course and Treatment: [] Treatment Plan: [] Disposition: [] Impression: Vaginal bleeding, 2-week status post vaginal delivery This note was generated with Neo [employer] software. It may contain incorrect words, spelling, and punctuation that were not noted in review of the chart prior to signing <Pierce Michel - Last Filed: 04/24/20 06:33> - ER Visit Summary Patient was checked out to me to check ultrasound results. Pelvic ultrasound shows thickened heterogeneous endometrium, measuring 26 mm, suggesting retained gestational products. Repeat BP 86/55. Patient states her blood pressure usually runs with systolic in 90s. She was given IV fluids. Discussed with Dr Treviño. She was evaluated by Dr Treviño in the ED and will be set up for D&C. This note was generated with [employer] software. It may contain incorrect words, spelling, and punctuation that were not noted in review of the chart prior to signing <Elena Hall - Last Filed: 04/24/20 08:16> ED Disposition <Pierce Michel - Last Filed: 04/24/20 06:33> <Elena Hall - Last Filed: 04/24/20 08:16> - Plan for ED Patient: Referrals: Ranjeet Malave MD [Primary Care Provider] -
[2020-04-24 05:09] LABS: Absolute Neutrophil Count 7.6 X10^3/uL (2.0-7.7); Basophil# 0.05 X10^3/uL; Basophil% 0.5 % (0-1); Eosinophil# 0.14 X10^3/uL; Eosinophils% 1.3 % (0-5); Hematocrit 36.4 % (37-47); Hemoglobin 11.4 g/dL (12.0-15.0); Lymphocyte % 23.6 % (19-41); Mean Corp Hgb Conc 31.3 g/dL (32-36); Mean Corpuscular Hgb 28.2 pg (27.0-32.0); Mean Corpuscular Volume 90.1 fL (81-99); Mean Platelet Vol. 8.1 fl (6.2-12.0); Monocyte# 0.55 X10^3/uL; NRBC Flagged by Analyzer 0 % (0-5); Neutrophil # 7.62 X10^3/uL (2.7-7.7); Neutrophil % 69.2 % (47-70); Platelet Count 431 K/mm3 (150-450); RBC Distribution Width CV 13.3 % (11.6-14.6); RBC Distribution Width SD 44.1 fl (35.1-43.9); Red Blood Count 4.04 M/mm3 (4.2-5.4)
[2020-04-24] MEDS: 0.9% Normal Saline 1,000 ML 999 ML IV (08:05)
--- NOTE | 2020-04-24 08:24 | HP.PCM_ITS ---
Problem List (1) Retained products of conception Status: Acute History of Present Illness Date of Admission: 04/24/20 Chief Complaint: heavy vaginal bleeding The patient is a 34 year old F 2 para 2 presents two weeks s/p uncomplicated on 04/10/20 with heavy vaginal bleeding. Bleeding started yesterday at 10 pm. She bled through her large maternity pads in less than an hour and passed large clots. She was evaluated in the ER early this morning however bleeding slowed and she was discharged to home. She returns again to the ER bleeding through 1 pad an hour. She had a pelvic US and reports lightheadedness at that time now resolved, she attributes this to vasovagal response due to ultrasound discomfort. Past Medical History Medical History: Medical History (Last Updated 04/24/20 @ 08:[address] 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 S , x 2 Lives: With Family Smoking Status: Never smoker Tobacco Use: Non-smoker Alcohol: None Drugs: None Review of Systems Constitutional: Denies: Chills, Fever Cardiovascular: Denies: Chest Pain, Chest Tightness, Edema, Light Headedness Respiratory: Denies: Shortness of Breath Gastrointestinal: Denies: Abdominal Pain, Nausea, Vomiting Gynecological: Reports: Vaginal bleeding VTE Information - Inpt Only VTE Present on Admission: No VTE Mechan Device Prophylaxis: SCD's VTE Pharm Prophylaxis ordered?: No Patient Problems: Active and Suspected Problems (Last Updated 04/24/20 @ 08:[address] Wendi Montiel MD) Retained products of conception (Acute) Subjective: AVSS - Physical Exam Vitals/I&O's: Vital Signs Temp Pulse Resp BP Pulse Ox 98.3 F 73 14 100/65 100 04/24/20 08:17 04/24/20 08:17 04/24/20 08:17 04/24/20 08:17 04/24/20 08:17 Oxygen Delivery Method Room Air Weight: 73.71 kg Body Mass Index (BMI) 24.0 General: Alert, Oriented x3, Cooperative, No apparent distress HEENT: Atraumatic, Normocephalic Lungs: Clear to auscultation, Normal air movement Cardiovascular: Regular rate, Regular Rhythm, Normal S1, Normal S2 Abdomen: Soft, Non Tender, Non-Distended Extremities: No edema, No Calf Tenderness Neurological: Neuro grossly intact Psych/Mental Status: Normal Affect, Appropriate, Alert and oriented to time, place, person, mood and affect Comment: SSE - 50cc of blood and clot in vagina; uterus nontender, cervix 1cm dilate Laboratory Results 04/24/20 05:00: WBC 11.0, RBC 4.04 L, Hgb 11.4 L, Hct 36.4 L, MCV 90.1, MCH 28.2, MCHC 31.3 L, RDW Std Deviation 44.1 H, RDW Coeff of Jayson 13.3, Plt Count 431, MPV 8.1, Immature Gran % (Auto) 0.400, Neut % (Auto) 69.2, Lymph % (Auto) 23.6, [place] % (Auto) 5.0, Eos % (Auto) 1.3, Baso % (Auto) 0.5, Absolute Neuts (auto) 7.6, Absolute Lymphs (auto) 2.60, Nucleated RBC % 0 Impressions Transvaginal US 04/24/20 04:56 IMPRESSION: Thickened heterogeneous endometrium, measuring 26 mm, suggesting retained gestational products. Electronically Signed: Elo Becker, at 7:26 EDT Tel , Service support , 04/24/20 04:56 Transvaginal Non- [US] Stat Laboratory Results 04/24/20 05:00 WBC 11.0 RBC 4.04 L Hgb 11.4 L Hct 36.4 L MCV 90.1 MCH 28.2 MCHC 31.3 L RDW Std Deviation 44.1 H RDW Coeff of Jayson 13.3 Plt Count 431 MPV 8.1 Immature Gran % (Auto) 0.400 Neut % (Auto) 69.2 Lymph % (Auto) 23.6 [place]utsman % (Auto) 5.0 Eos % (Auto) 1.3 Baso % (Auto) 0.5 Absolute Neuts (auto) 7.6 Absolute Lymphs (auto) 2.60 Nucleated RBC % 0 Current Medications Sodium Chloride () 1,000 mls @ 999 mls/hr IV .Q1H1M ONE Stop: 04/24/20 08:54 Last Admin: 04/24/20 08:05 Dose: 999 mls/hr Documented by: Assessment/Plan All Active Problems (Last Updated 04/24/20 @ 08:[address] Wendi Montiel MD) Retained products of conception (Acute) 34yo s/p with retained products of conception and delayed hemorrhage Labs and US findings reviewed with patient. I advised suction dilation and curettage. Reviewed procedural risks including pain, bleeding possibly requiring hysterectomy, infection, allergic reaction, uterine perforation with possible bowel or bladder injury requiring further surgery including but not limited to laparotomy, retained products requiring repeat dilation and curettage. Reviewed anticipated recovery course. Also discussed alternative medical management as patient is hemodynamically stable at this time however this is the patients second ER encounter for same symptoms in less than 12 hours with waxing and waning bleeding. Pt understands risk for heightened complications associated with failed medical management. Pt in agreement with plan, will proceed with suction dilation and curettage. Procedure Criteria Procedure Type: Elective COVID Risk Discussion: The surgeon/proceduralist and patient have discussed in detail the risk of exposure to and/or potential harm posed by the COVID-19 virus with having a surgery/procedure at this time versus the risk of delaying the surgery/procedure. It is not possible to know either the risk of delaying the surgery or procedure or chance of getting an infection with perfect accuracy, but a joint decision was made between the patient and the surgeon/proceduralist to proceed at this time with the scheduled surgery/procedure as indicated on the consent form.
--- NOTE | 2020-04-24 09:45 | ED.RN ---
CALLED PHARMACY REGARDING CYTOTEC, SAID THEY WOULD SEND IT RIGHT DOWN.
[2020-04-24] MEDS: miSOPROStol 200 MCG Tablet 800 MCG BUCCAL (09:55)
[2020-04-24] MEDS: Doxycycline 100 MG CAPSULE PO (09:56)
--- NOTE | 2020-04-24 11:41 | EMB_PTH ---
PATIENT: DENISA MARTINEZ LOC: [facility] U#:[id number] AGE/SX: 34/F ROOM: RE04/24/[address]: Dr. Wendi Montiel MD : 1985 BED: DIS: 04/24/2020 SPEC #: [id number] RECD: 04/24/20 13:45 STATUS: RAVI YANEZ #: [id number] MATTHEW: 04/24/20 11:[address]: Wendi Norwood DEPT: SURGICAL PATHOLOGY RECD BY: Priyank Cespedes ENTERED: 04/26/20 08:40 SP TYPE: ENDOM BX/C OTHR DR: Dr. Ranjeet Malave MD Tissues: Endometrium, NOS Procedures: Surgery Specimen Level IV HEADER OPERATION: D & C PRE-OP DIAGNOSIS: Retained products of conception TISSUE SUBMITTED: Tissue MICROSCOPIC DIAGNOSIS Endometrium, curettage: Secretory endometrium, decidualized tissue with degenerative change and superficial myometrium. AM:suzie 04/27/20 COMMENT The findings are consistent with retained tissue. Clinical correlation is suggested. Case has been reviewed in consultation with Dr. Mac who concurs with the above diagnosis. IDC:[id number] MICROSCOPIC DESCRIPTION Slides are reviewed. GROSS DESCRIPTION Received is one container labeled with the patient's name and not further designated. The specimen consists of multiple fragments of blood clot mixed with a scant piece of hemorrhagic soft tissue that in aggregate measure 10 x 10 x 3 cm. No tissue is identified. Make Up Operator Helper tissue is submitted in three cassettes. / FABY:suzie 04/26/20 TC:4 CPT: 09785
--- NOTE | 2020-04-24 12:02 | OP.PCM_ITS ---
Problem List (1) Retained products of conception Status: Acute Report of Operation Date of Procedure: 04/24/20 Pre-Operative Diagnosis: 1. Retained products of conception. 2. Delayed hemorrhage Post-Operative Diagnosis: 1. Retained products of conception. 2. Delayed hemorrhage Surgery/Procedure Performed:: Suction dilation and curettage Description of Surgical Findings:: retained products message and delivery service pricer: None Type of Anesthesia:: MAC Anesthesiologist: Albino Iverson Estimated Blood Loss (mL): 25 Fluids Replaced: 500 Description of Procedure: Indications: 34-year-old 2 para 2-0-0-2 presents 2-week status post uncomplicated spontaneous vaginal delivery with complaint of heavy vaginal bleeding. She was found to have retained products of conception. Advised her to proceed with suction dilatation and curettage as this was her second presentation for bleeding. Procedural risks, benefits, indications and alternatives were reviewed at length. Patient desired to proceed. Procedure: Patient was brought to the operating room and signed was performed. She is placed in the dorsal lithotomy and induced under MAC. The perineum and vagina were prepped and draped in sterile fashion. A bivalve speculum was placed vaginally and the cervix grasped at the anterior cervical lip using a single-tooth tenaculum. The cervix was already dilated more than a centimeter. Suction curettage was performed using an 11 mm curved curette with retrieval of clot and presumed products of conception. This was followed by sharp curettage and again suction curettage was performed. I performed bedside ultrasound demonstrating a small area of retained products at the fundus. This was retrieved using sharp curettage. Ultrasound again performed showed a thin, uniform and hyperechoic endometrium. The procedure was complete. The patient was placed into dorsal supine position, awakened and transferred to the recovery room without complication. Sponge counts were correct x2. The patient tolerated the procedure well. - Complications None - Admit VTE Documentation VTE Present on Admission: No VTE Mechan Device Prophylaxis: None VTE Pharm Prophylaxis ordered?: No
--- NOTE | 2020-04-24 12:18 | DCINST_ITS ---
Discharge Diet: No Restrictions Discharge Activity: Return to Normal Activity Call your doctor if you observe: Fever of 101 or Higher, Inability to urinate, Inability to have a bowel movement, Using more than one pad per hour, Shortness of breath, Chest pain, Calf discomfort, Uncontrolled pain Allergies/Adverse Reactions: Allergies No Known Allergies Allergy (Verified 04/24/20 01:15) Medications to take at Discharge Vits [Prenatabs FA ] 1 tablet PO DAILY 12/23/17 Ibuprofen 600 mg PO TID PRN #30 tab 04/24/20 The following prescriptions were given: Ibuprofen 600 mg PO TID PRN #30 tab PRN Reason: pain Transmission Status: Pending to [id number] Primary Care Physician: Ranjeet Malave MD [Primary Care Provider] - Test Results: Test results from this visit will be discussed in further detail at your follow- up appointment, if applicable. Please Follow Up With: Wendi Treviño MD When: 4 weeks
--- NOTE | 2020-04-24 13:03 | NURSING ---
1118 pt received from ER to OR room 2
--- NOTE | 2020-04-24 13:04 | NURSING ---
1203 pt out of OR 2 to PACU
[2020-04-25 14:20] LABS: Pathology Specimen OB SEE PATHOLOGY REPORT
== END 2020-04-24 13:50 | disposition home or self-care (01) ==
LOC: ED 05:34 → SDC 09:07 → AC 09:09
PROVIDERS: Emergency Provider Emergency Medicine; PCP Family Medicine; Visit Provider Obstetrics & Gynecology
PROC: (CPT 59160; principal; 2020-04-24 12:20)
DX: O72.2 Delayed and secondary postpartum hemorrhage (principal)
CPT/HCPCS: 59160; 36415; 76830; 85025; 88305; 99282; J7030; A4216

== ENCOUNTER → 2020-05-28 | Outpatient (CLI) | payer OTHER, SELFPAY ==
[2020-04-24 08:17] VITALS: BMI 24.0
[2020-06-02 14:44] LABS: HPV Reflexed? NOT INDICATED
== END | disposition home or self-care (01) ==
LOC: LABSPEC 13:43
PROVIDERS: PCP Family Medicine; Visit Provider Obstetrics & Gynecology
DX: Z12.4 Encounter for screening for malignant neoplasm of cervix (principal)
CPT/HCPCS: 88175; G0145